=== PATIENT | female | born 2000 | race Caucasian/White ===

== ENCOUNTER 2020-06-26 08:14 | Emergency (ER) | payer BC, SELFPAY ==
[2020-06-26 08:24] VITALS: BP 136/84; PULSE 93; RESP 18; TEMP 36.1; O2SAT 98
--- NOTE | 2020-06-26 08:52 | ED.EAR ---
HPI - Ear Problem General Chief complaint: Ear Stated complaint: Ear ache/stuffy nose Source: patient and RN notes reviewed Mode of arrival: ambulatory Limitations: no limitations History of Present Illness HPI Narrative: The patient, who is a non-smoker/non-drinker college student, presents with left earache. Patient states she had negative COVID test over a week ago, she now has 1/2-week history of runny nose associated with left ear discomfort. No fever measured, sore throat, loss of taste/smell, cough, discharge, vomiting/diarrhea, rash. There is a mild slightly worse at night Related Data Home Medications Medication Instructions Recorded Confirmed bupropion HCl mg PO 06/26/20 Allergies Allergy/AdvReac Type Severity Reaction Status Date / Time No Known Drug Allergies Allergy Unknown Other Verified 01/31/19 12:51 Review of Systems Review of Systems: Narrative: General/Constitutional: No weight loss,fever Eyes: N0: Redness,discharge Ears/Nose/Throat: No: Epistaxis,ear discharge Respiratory: Denies: Hemoptysis Gastrointestinal: No Vomiting, Bleeding-rectal Skin: No Lumps, eruption Neurologic: No Focal Weakness,Sz Hematologic: Denies: Petechiae/Purpura Psychiatric: No: Suicida ideationl All Other Systems: Reviewed and Negative PMFSH Comments At time of signature, agree with nursing past medical, surgical, social and family history. There is no relevant family history pertinent to the presenting complaint Exam Narrative: Exam Narrative: General Appearance: Well appearing, Well nourished EYE: PERRLA, Conjunctiva clear Ears: Auditory canal normal, TM normal with mild inflammation of the left vascular strip Nose: Rhinorrhea, Mucousal erythema Mouth/Throat: MM moist, Uvula midline, Pharyngeal erythema Neck: Supple, No adenopathy Respiratory: No respiratory distress, airway patent Musculoskeletal: Non tender, Normal strength Skin: Warm, Dry Neurological: A&O x3, CN II-XII intact Psychiatric: Normal mood, Normal affect Course Vital Signs Vital signs: Vital Signs Temperature 96.9 F L 06/26/20 08:24 Pulse Rate 93 06/26/20 08:24 Respiratory Rate 18 06/26/20 08:24 Blood Pressure 136/84 06/26/20 08:24 Pulse Oximetry 98 06/26/20 08:24 Temperature 96.9 F L 06/26/20 08:24 Pulse Rate 93 06/26/20 08:24 Respiratory Rate 18 06/26/20 08:24 Blood Pressure 136/84 06/26/20 08:24 Pulse Oximetry 98 06/26/20 08:24 Medical Decision Making Vital Signs Vital Signs: Vital Signs Temperature 96.9 F L 06/26/20 08:24 Pulse Rate 93 06/26/20 08:24 Respiratory Rate 18 06/26/20 08:24 Blood Pressure 136/84 06/26/20 08:24 Pulse Oximetry 98 06/26/20 08:24 Temperature 96.9 F L 06/26/20 08:24 Pulse Rate 93 06/26/20 08:24 Respiratory Rate 18 06/26/20 08:24 Blood Pressure 136/84 06/26/20 08:24 Pulse Oximetry 98 06/26/20 08:24 Discharge Plan Discharge Clinical Impression: Acute otalgia Qualifiers: Laterality: left Qualified Code(s): H92.02 - Otalgia, left ear URI (upper respiratory infection) Qualifiers: URI type: unspecified URI Qualified Code(s): J06.9 - Acute upper respiratory infection, unspecified Patient Disposition: Home, Self-Care Condition: Stable Instructions: Antibiotic Form Prescriptions: New azithromycin 250 mg tablet See Rx Instructions .ROUTE .COMPLEX Qty: 6 RF: 0 tramadol 50 mg tablet 50 mg PO Q6H PRN (Reason: pain) Qty: 15 RF: 1 No Action bupropion HCl 150 mg tablet extended release 24 hr PO RF: 0 Follow-up/Referrals: PHYSICIAN NOT ON STAFF,NONSTAFF [Primary Care Provider] - Stand Alone Forms: Work/School Release IP Discharge Date/Time: 06/26/20 08:53
== END 2020-06-26 08:53 | disposition home or self-care (01) ==
PROVIDERS: Emergency Provider Emergency Medicine
DX: H92.02 Otalgia, left ear (principal); J06.9 Acute upper respiratory infection, unspecified
CPT/HCPCS: 99213; G0463